=== PATIENT | male | born 1965 | race Caucasian/White ===

== ENCOUNTER 2022-12-24 15:22 | Emergency (ER) | payer MEDICAID, OTHER ==
[~2022-12-24] VITALS: Ht 175.3 cm; Wt 93.9 kg
[2022-12-24 15:45] VITALS: O2SAT 96
[2022-12-24] MEDS ORDERED: QUET50TA MT (18:20)
[2022-12-24 19:13] VITALS: BP 137/85; PULSE 97; RESP 16; TEMP 98.3
== END 2022-12-24 19:15 | disposition home or self-care (01) ==
LOC: ER 15:22
DX: Z76.0 Encounter for issue of repeat prescription (principal); F32.9 Major depressive disorder, single episode, unspecified; E78.00 Pure hypercholesterolemia, unspecified; I10 Essential (primary) hypertension
CPT/HCPCS: 99281; 99283